=== PATIENT | male | born 2000 | race Caucasian/White ===

== ENCOUNTER 2022-10-29 19:02 | Emergency (ER) | payer BC, SELFPAY ==
[2022-10-29 19:10] VITALS: BP 136/72; PULSE 84; RESP 16; TEMP 36.3; O2SAT 99
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
[2022-10-29] MEDS: TETANUS/DIPHTH/PERTUSSIS 0.5 ML SYRINGE IM (20:32)
== END 2022-10-29 20:41 | disposition home or self-care (01) ==
LOC: ED 20:28
PROVIDERS: Emergency Provider Family Medicine; PCP Family Medicine
DX: S61.412A Laceration without foreign body of left hand, initial encounter (principal); W26.0XXA Contact with knife, initial encounter; Y93.89 Activity, other specified; Y92.9 Unspecified place or not applicable; Y99.9 Unspecified external cause status
CPT/HCPCS: 12001; 90471; 90715; 99282; 99283